=== PATIENT | male | born 1975 | race Caucasian/White ===

== ENCOUNTER 2018-08-15 13:53 | Emergency (ER) | payer OTHER ==
--- NOTE | 2018-08-15 15:00 | EDPHY ---
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 He reports the pain is 5/10 intensity. He denies any difficulty moving the finger since the incident occurred and he has no other associated symptoms. He is accompanied by his and daughter. He came in by private vehicle. ROS: Neuro: No numbness or tingling Musculoskeletal: No difficulty moving fingers 5 point review of symptoms is performed and otherwise negative with exception of pertinent positives and negatives listed in HPI and ROS (Anand Falk) Past Medical/Surgical History: Otherwise healthy with immunizations up today (Anand Falk) Physical Exam: Physical Exam Vital signs are normal. General: No acute distress Cardiac: Brisk capillary refill is intact throughout affected fingers. Skin: No rash or pallor. Extremities: Atraumatic normal exception of his left hand Left hand: Patient has a 1 cm full-thickness laceration to the palmar aspect of the 4th finger between the PIP and D IP joints-subcutaneous tissue evident and mild bleeding. Appreciate no foreign bodies and direct examination his 5th fingers also lacerated 1.5 cm full-thickness with moderate bleeding. Appreciate no foreign bodies and direct examination. Neuro: Alert and oriented with no sensorimotor deficits infected fingers. He maintains normal light touch sensory exam to the 4th and 5th finger on the left hand. (Anand Falk) Constitutional: Initial Vital Signs Temperature (C) 36.7 C 08/15/18 14:00 Heart Rate 66 08/15/18 14:00 Respiratory Rate 16 08/15/18 14:00 Blood Pressure 116/68 08/15/18 14:00 O2 Sat (%) 94 08/15/18 14:00 O2 Delivery Mode Room Air Allergies/Adverse Reactions: No Known Allergies Allergy (Verified 08/15/18 13:59) Home Medications: Medication Instructions Recorded NK [No Known Home Meds] 08/15/18 MDM/Departure - MDM Procedures: Digital blocks: After verbal consent, using a 50 50 mix of 0.5% Marcaine 2% plain lidocaine, 27 gauge needle, chlorhexidine scrub under sterile conditions- 3 injections were administered to the base of the affected finger, 6 mL with good effect to the 4th finger Patient tolerated this well. There were no complications. Digital block: After verbal consent, using a 50 50 mix of 0.5% Marcaine 2% plain lidocaine, 27 gauge needle, chlorhexidine scrub under sterile conditions- 3 injections were administered to the base of the affected finger, 4 mL to the 5th finger with good effect. Patient tolerated this well. There were no complications. (Anand Falk) Procedure note-laceration The wound was irrigated with copious amounts of saline. Lidocaine 1% was used for local anesthetic. 7 simple interrupted sutures were placed. 4-0 Ethilon was used. ring finger 2 cm lac sutured middle finger 1 cm superficial laceration, dermabonded (Gi Harrington) Medications Given: Discontinued Medications Diphtheria/Tetanus/Acell Pertussis (Boostrix) 0.5 ml IM .ONCE ONE Stop: 08/15/18 15:57 Last Admin: 08/15/18 16:03 Dose: 0.5 ml ED Course/Re-evaluation: I spoke with Dr. Patel, [facility] emergency physician who will perform suture repair on this patient. (Anand Falk) - Depart Disposition: Home, Routine, Self-Care Clinical Impression: Laceration of finger Qualifiers: Encounter type: initial encounter Finger: unspecified finger Damage to nail status: without damage Foreign body presence: without foreign body Laterality: left Qualified Code(s): S61.219A - Laceration without foreign body of unspecified finger without damage to nail, initial encounter Condition: Good Instructions: Care For Your Stitches (ED), Finger Laceration (ED), Skin Adhesive Care (ED) Additional Instructions: Diagnosis: 4th and 5th finger lacerations Plan: Keep the wound clean and dry for the next 2 days. Then removed the dressing clean daily with warm soapy water Ibuprofen Tylenol if needed for pain control Return for suture removal in 10-12 days Return sooner if he develops redness, discharge or other concerns for infection. Referrals: NONE *PRIMARY CARE P,. [Primary Care Provider] - As per Instructions
[2018-08-15] MEDS ORDERED: TDAP ADULT 0.5 ML INJ (BOOSTRIX) IM ONE (15:56)
[2018-08-15 16:20] VITALS: BP 117/78
== END 2018-08-15 16:26 | disposition home or self-care (01) ==
LOC: CED 13:53
PROC: 0HQGXZZ Repair Left Hand Skin, External Approach (ICD-10-PCS; principal; 2018-08-15)
DX: S61.215A Laceration without foreign body of left ring finger without damage to nail, initial encounter (principal); S61.217A Laceration without foreign body of left little finger without damage to nail, initial encounter; Z23 Encounter for immunization; W26.8XXA Contact with other sharp object(s), not elsewhere classified, initial encounter; Y92.89 Other specified places as the place of occurrence of the external cause; Y93.9 Activity, unspecified; Y99.9 Unspecified external cause status